=== PATIENT | female | born 1990 ===

== ENCOUNTER 2024-01-17 15:15 | Outpatient (CLI) | payer BC, SELFPAY ==
--- NOTE | 2024-01-17 09:00 | DI.RAD_ITS ---
Exam(s) XR HIP LT COMPLETE AP PELVIS EXAM: XR HIP LT COMPLETE AP PELVIS CLINICAL HISTORY: left hip pain. TECHNIQUE: 2D digital imaging was performed of the left hip. Two views were obtained. AP pelvis an d lateral left hip views were obtained. COMPARISON: No exams were available for comparison FINDINGS: BONES: No acute fracture is present. No bony destructive lesion is seen. JOINTS: No dislocation present. There is mild narrowing of the superior joint space of the hips bilat erally, left greater than right. The visualized sacroiliac joints and symphysis pubis are unremarkab le. SOFT TISSUE: Normal. IMPRESSION: Bilateral narrowing of the hip joints, left greater than right. DATA REPOSITORY: RADIATION DOSE DELIVERED:
== END 2024-01-17 15:16 | disposition home or self-care (01) ==
LOC: DIORS 15:16
PROVIDERS: Visit Provider Physician Assistant
DX: M16.0 Bilateral primary osteoarthritis of hip (principal)
CPT/HCPCS: 73502

== ENCOUNTER → 2024-04-15 01:21 | Outpatient (CLI) | payer BC, SELFPAY ==
--- NOTE | 2024-04-15 07:00 | DI.MRI_ITS ---
Exam(s) MR LOWER JOINT LT WO EXAM: MR LOWER JOINT LT WO CLINICAL HISTORY: pain,ARTHRITIS LT HIP, FEMOROACETABULAR IMPINGEMENT LT HIP, M16.12 TECHNIQUE: Multiplanar multisequence MRI of Pelvis was performed COMPARISON: CR XR HIP LT COMPLETE AP PELVIS from 01/17/2024 US POCUS EXAM from 03/13/2024 FINDINGS: Bones: There is no fracture or contusion pattern. No bone marrow edema is seen. No findings to sugg est femoroacetabular impingement. Joints: No significant joint effusion. Abnormal high signal in the right superior labrum consistent labral tear. No adjacent labral cyst. The SI joints and symphysis pubis are well maintained. Musculotendinous structures: Musculotendinous structures demonstrate no abnormality. Intrapelvic structures: Uterus and left ovary appear normal. Homogeneous, circumscribed low T1 and T 2 signal lesion which may arise from the right ovary versus represent pedunculated fibroid. It measu res 5.8 x 3.8 by 6.6 cm. IMPRESSION: Right superior labral tear. Pedunculated fibroid versus right ovarian lesion. Pelvic ultrasound recommended for further evaluati on. Unexpected findings DATA REPOSITORY:
== END ==
PROVIDERS: Visit Provider Student in an Organized Health Care Education/Training Program
DX: M25.852 Other specified joint disorders, left hip (principal); M16.12 Unilateral primary osteoarthritis, left hip
CPT/HCPCS: 73721